=== PATIENT | female | born 1995 | race Caucasian/White ===

== ENCOUNTER 2021-01-19 12:20 | Outpatient (CLI) | payer OTHER, SELFPAY ==
[2021-01-20 10:36] LABS: SARS-CoV-2 PCR by NAA Not Detected (NotDetected)
== END 2021-01-19 12:21 | disposition home or self-care (01) ==
LOC: CSHLAB 12:20
PROVIDERS: ATTEND Obstetrics & Gynecology
DX: Z20.822 Contact with and (suspected) exposure to COVID-19 (principal)
CPT/HCPCS: U0003; U0005